=== PATIENT | male | born 1985 | race Caucasian/White ===

== ENCOUNTER 2017-10-14 18:03 | Emergency (ER) | payer BC ==
[2017-10-14 18:22] VITALS: BP 133/81
--- NOTE | 2017-10-14 18:39 | RAD ---
INDICATION: Right ankle pain COMPARISON: None TECHNIQUE: AP, lateral, and oblique views were obtained. FINDINGS: There is no acute fracture. Ankle mortise is intact. There is moderate lateral soft tissue swelling.. IMPRESSION: MODERATE LATERAL SOFT TISSUE SWELLING.
--- NOTE | 2017-10-14 19:33 | RAD ---
INDICATION: Right lateral foot pain COMPARISON: None TECHNIQUE: AP, lateral, and oblique views were obtained. FINDINGS: There is a comminuted, intra-articular fracture of anterior process of the calcaneus with extension to the calcaneocuboid articulation. There are also irregularities of the dorsal aspect of the anterior talus which could be related to an acute or chronic injury. There is soft tissue swelling over the dorsum of the midfoot. IMPRESSION: COMMINUTED, INTRA-ARTICULAR CALCANEAL FRACTURE.
--- NOTE | 2017-10-14 20:13 | UC ---
London Bermudez Natalie, scribed for Amadeo Shelton MD on 10/14/17 at 1846 . Lower Extremity/Ankle HPI - HPI Summary HPI Summary: The patient is a 32 y/o M presenting to [facility] c/o twisting right ankle after rock climbing and falling on it this morning. He is still in pain, rated 2/10 in severity. He is unable to bear weight on it, and the pain is worse with movement. - History of Current Complaint Chief Complaint: UCLowerExtremity Stated Complaint: RIGHT ANKLE INJURY Time Seen by Provider: 10/14/17 18:29 Hx Obtained From: Patient Onset/Duration: Sudden Onset, Still Present Severity Initially: Mild Severity Currently: Mild Pain Intensity: 2 Pain Scale Used: 0-10 Numeric Aggravating Factor(s): Standing, Ambulation Alleviating Factor(s): Other Able to Bear Weight: No - Allergies/Home Medications Allergies/Adverse Reactions: Allergies Allergy/AdvReac Type Severity Reaction Status Date / Time No Known Allergies Allergy Verified 10/14/17 18:22 Home Medications: Home Medications Terbutaline TAB* [Brethine TAB 2.5 MG*] 2.5 mg PO Q6H 10/14/17 [History Confirmed 10/14/17] PMH/Surg Hx/FS Hx/Imm Hx - Surgical History Surgical History: Yes Surgery Procedure, Year, and Place: Tonsillectomy - Family History Known Family History: Positive: None - reviewed & noncontributory - Social History Alcohol Use: Occasionally Substance Use Type: Marijuana Substance Use Comment - Amount & Last Used: every 6 months Smoking Status (MU): Former Smoker Review of Systems Constitutional: Other - NEGATIVE: fever Musculoskeletal: Decreased ROM, Other: - right ankle pain, unable to bear weight All Other Systems Reviewed And Are Negative: Yes Physical Exam - Summary Physical Exam Summary: VITAL SIGNS: Reviewed. GENERAL: Patient is a well-developed and nourished male who is lying comfortable in the stretcher. Patient is not in any acute respiratory distress. HEAD AND FACE: Normocephalic EYES: PERRLA, EOMI x 2. EARS: Hearing grossly intact. MOUTH: Oropharynx within normal limits. NECK: Supple, trachea is midline, no adenopathy, no JVD, no carotid bruit. CHEST: Symmetric, no tenderness at palpation LUNGS: Clear to auscultation bilaterally. No wheezing or crackles. CVS: Regular rate and rhythm, S1 and S2 present, no murmurs or gallops appreciated. ABDOMEN: Soft, non-tender. Bowel sounds are normal. No abdominal abnormal pulsations. EXTREMITIES: Swelling in right ankle in medial lateral area with eccymosis and decrease ROM. Vascular tissues intact. Full ROM in all other major joints without edema, no cyanosis or clubbing. NEURO: Alert and oriented x 3. No acute neurological deficits. Speech is normal and follows commands. SKIN: Dry and warm Triage Information Reviewed: Yes Vital Signs: Initial Vital Signs Temp 99.3 F 10/14/17 18:17 Pulse 106 10/14/17 18:17 Resp 18 10/14/17 18:17 BP 133/81 10/14/17 18:17 Pulse Ox 99 10/14/17 18:17 Vital Signs Reviewed: Yes Diagnostics - Radiology Ankle XR Xray Interpretation: No Acute Changes - Moderate lateral soft tissue swelling. [facility] physician has reviewed this report. Radiology Interpretation Completed By: Radiologist Foot XR Xray Interpretation: Positive (See Comments) - Comminuted, intra-articular calcaneal fracture. [facility] physician has reviewed this report. Radiology Interpretation Completed By: Radiologist Lower Extremity Course/Dx - Course Course Of Treatment: The patient is a 32 y/o M presenting to [facility] c/o twisting right ankle after rock climbing and falling on it this morning. He is still in pain, rated 2/10 in severity. He is unable to bear weight on it, and the pain is worse with movement. The patient was found to have increased BP in UC. The patient will follow up with PCP for better control of BP. Right ankle XR is negative. Right foot XR is positive: Comminuted, intra-articular calcaneal fracture. I will place a posterior splint on the patient's right foot for fracture. I placed the splint with a lot of padding. After placing the splint, the patient's fracture is intact. He will be discharged home with follow up with Dr. Fuentes, orthopedics. Patient states he will try to follow up with Dr. Adam at [place], but if he cannot get an appointment, then he will follow up with Dr. Fuentes. I discussed all the findings and test results with the patient. Patient was instructed to return to the urgent care or go to ER immediately if any of the symptoms return or worsens. Plan of care was discussed with the patient, and patient understands and agrees. All questions were answered to patient satisfaction. There were no further complaints or concerns. - Differential Dx/Diagnosis Provider Diagnoses: comminuted, intra-articular calcaneal fracture - Physician Notifications Discussed Patient Care With: Sera Brothers Time Discussed With Above Provider: 19:47 - I spoke with Dr. Brothers about the patient's fracture. She suggested follow up with orthopedics. Discharge - Sign-Out/Discharge Documenting (check all that apply): Discharge/Admit/Transfer - Discharge Plan Condition: Stable Disposition: HOME Prescriptions: HYDROcodone/ACETAMIN 5-325 MG* [[place] 5-325 TAB*] 1 tab PO Q4H PRN #12 tab MDD 4 tabs PRN Reason: Pain Patient Education Materials: Calcaneal Fracture (ED) Referrals: Carlos Enrique Spencer MD [Primary Care Provider] - Braden Araiza MD [Medical Doctor] - As Soon As Possible Additional Instructions: Follow up with Dr. Kwabena Fuentes, orthopedics, concerning further treatment of your fracture. Return to the UC or emergency department for any new or worsening symptoms. - Billing Disposition and Condition Condition: STABLE Disposition: HOME The documentation as recorded by the London esteban Natalie accurately reflects the service I personally performed and the decisions made by , Amadeo Shelton MD.
[2017-10-14] MEDS ORDERED: HYDROcodone/ACETAMIN 5-325 MG* 1 TAB PO ONE (20:15)
== END 2017-10-14 20:15 | disposition home or self-care (01) ==
LOC: UCEAST 18:03
DX: S92.061A Displaced intraarticular fracture of right calcaneus, initial encounter for closed fracture (principal); X50.1XXA Overexertion from prolonged static or awkward postures, initial encounter; Y93.31 Activity, mountain climbing, rock climbing and wall climbing; Y92.9 Unspecified place or not applicable; Z87.891 Personal history of nicotine dependence
CPT/HCPCS: 99212; G0463